=== PATIENT | female | born 1995 | race African-American/Black ===

== ENCOUNTER 2016-12-17 11:30 | Emergency (ER) | payer SELFPAY ==
[~2016-12-17] VITALS: Ht 167.6 cm; Wt 55.0 kg
[~2016-12-17 11:30] MED LIST: METR-1 PO
[2016-12-17 11:31] VITALS: BP 129/58; PULSE 83; RESP 18; TEMP 98.2; O2SAT 100
== END 2016-12-17 12:00 | disposition left against medical advice (07) ==
LOC: NED 11:30
DX: M54.9 Dorsalgia, unspecified (principal); R10.9 Unspecified abdominal pain
CPT/HCPCS: 99281

== ENCOUNTER 2017-02-17 17:37 | Emergency (ER) | payer SELFPAY ==
[~2017-02-17] VITALS: Ht 167.6 cm; Wt 57.0 kg
[2017-02-17 17:40] VITALS: BP 119/58; PULSE 84; RESP 16; TEMP 98.2; O2SAT 99
[2017-02-17 18:24] LABS: BLOOD, URINE NEG (NEG); COMMENT (UR) CULT NOT INDICATED; CULTURE IF INDICATED CULT NOT INDICATED; GLUCOSE,URINE NEG (NEG); KETONE, URINE NEG (NEG); MUCUS URINE FEW /lpf (OCC); NITRITE,URINE NEG (NEG); SQUAMOUS EPITHELIAL CELL URINE 2 /hpf (0-5); URINE COLOR YELLOW (YELLW/STRAW)
[2017-02-17 18:25] LABS: AUTOMATED NEUTROPHIL # 4.5 TH/MM3 (1.8-7.7); BASOPHIL % 0.5 % (0.0-2.0); EOSINOPHIL % 0.4 % (0.0-4.0); HEMATOCRIT 40.5 % (35.0-46.0); HEMO FLAGS DIFF FINAL; LYMPHOCYTE # 1.8 TH/MM3 (1.0-4.8); MEAN CELL VOLUME 87.2 FL (80.0-100.0); MEAN CORPUSCULAR HEMOGLOBIN 27.3 PG (27.0-34.0); MEAN CORPUSCULAR HGB CONC 31.3 % (32.0-36.0); MONO % 9.6 % (0.0-8.0); NEUT % 63.5 % (16.0-70.0); PLATELET COUNT 145 TH/MM3 (150-450); RED BLOOD COUNT 4.65 MIL/MM3 (4.00-5.30); RED CELL DISTRIBUTION WIDTH 13.4 % (11.6-17.2); WHITE BLOOD COUNT 7.1 TH/MM3 (4.0-11.0)
[2017-02-17 18:43] LABS: BICARBONATE 25.3 MEQ/L (21.0-32.0); POTASSIUM 3.5 MEQ/L (3.5-5.1)
--- NOTE | 2017-02-17 19:08 | PD ---
HPI . Abdominal pain and constipation Chief Complaint: Abdominal Pain Time Seen by Provider: 18:23 Travel History International Travel<30 days: No Contact w/Intl Traveler<30days: No Traveled to known affect area: No History of Present Illness HPI Patient presents with at least a 2 week history of abdominal pain and constipation. She states that she is eating well. She is not running fever. She denies any urinary tract symptoms. She is not vomiting. States that she has been seen here before for this and was given a bottle of magnesium citrate with no relief. That was in August. Pain is mild and is described as cramping. PFSH Past Medical History ADHD: Yes Blood Disorders: No Diminished Hearing: No Immunizations Current: Yes ?: Not : 0 Social History Alcohol Use: No Tobacco Use: No Substance Use: No Allergies-Medications (Allergen,Severity, Reaction): Coded Allergies: Mushroom (Verified Allergy, Severe, fingers and face swelled up. Had some wheezing., 02/17/17) Took allergy medicine and used ice bags on face. Smoke (Verified Allergy, Unknown, can't breath, eyes get watery and has a cough, 02/17/17) Reported Meds & Prescriptions Reported Meds & Active Scripts Active Flagyl (Metronidazole) 500 Mg Tab 500 Mg PO BID Review of Systems Except as stated in HPI: all other systems reviewed are Neg General / Constitutional: No: Fever, Chills Gastrointestinal: Positive: Abdominal Pain, Constipation, No: Nausea, Vomiting , Diarrhea, Loss of Appetite Genitourinary: No: Urgency, Frequency, Dysuria, Discharge, Vaginal Bleeding Physical Exam Narrative GENERAL: Patient is smiling and is in no distress. SKIN: Warm and dry. HEAD: Atraumatic. Normocephalic. EYES: Pupils equal and round. Extraocular movements are intact. ENT: No nasal bleeding or discharge. Mucous membranes pink and moist. NECK: Trachea midline. Neck is supple. CARDIOVASCULAR: Regular rate and rhythm. Heart sounds are normal. RESPIRATORY: No accessory muscle use. Lungs are clear. GASTROINTESTINAL: Abdomen soft, non-tender, nondistended. MUSCULOSKELETAL: No obvious deformities. No edema. NEUROLOGICAL: Awake and alert. No obvious cranial nerve deficits. Motor grossly within normal limits. Normal speech. PSYCHIATRIC: Appropriate mood and affect; insight and judgment normal. Data Data Last Documented VS Vital Signs Date Time Temp Pulse Resp B/P Pulse Ox O2 Delivery O2 Flow Rate FiO2 02/17/17 17:40 98.2 84 16 119/58 99 Orders Basic Metabolic Panel (Bmp) (02/17/17 17:53) Complete Blood Count With Diff (02/17/17 17:53) Urinalysis - C+S If Indicated (02/17/17 17:53) Iv Access Insert/Monitor (02/17/17 17:53) Ecg Monitoring (02/17/17 17:53) Oximetry (02/17/17 17:53) Ed Urine Pregnancytest Poc (02/17/17 17:53) Labs Laboratory Tests Test 02/17/17 02/17/17 18:01 18:03 White Blood Count 7.1 TH/MM3 Red Blood Count 4.65 MIL/MM3 Hemoglobin 12.7 GM/DL Hematocrit 40.5 % Mean Corpuscular Volume 87.2 FL Mean Corpuscular Hemoglobin 27.3 PG Mean Corpuscular Hemoglobin 31.3 % Concent Red Cell Distribution Width 13.4 % Platelet Count 145 TH/MM3 Mean Platelet Volume 10.3 FL Neutrophils (%) (Auto) 63.5 % Lymphocytes (%) (Auto) 26.0 % Monocytes (%) (Auto) 9.6 % Eosinophils (%) (Auto) 0.4 % Basophils (%) (Auto) 0.5 % Neutrophils # (Auto) 4.5 TH/MM3 Lymphocytes # (Auto) 1.8 TH/MM3 Monocytes # (Auto) 0.7 TH/MM3 Eosinophils # (Auto) 0.0 TH/MM3 Basophils # (Auto) 0.0 TH/MM3 CBC Comment DIFF FINAL Differential Comment Sodium Level 139 MEQ/L Potassium Level 3.5 MEQ/L Chloride Level 105 MEQ/L Carbon Dioxide Level 25.3 MEQ/L Anion Gap 9 MEQ/L Blood Urea Nitrogen 11 MG/DL Creatinine 0.76 MG/DL Estimat Glomerular Filtration 115 ML/MIN Rate Random Glucose 67 MG/DL Calcium Level 8.8 MG/DL Urine Color YELLOW Urine Turbidity CLEAR Urine pH 5.0 Urine Specific [place] 1.029 Urine Protein TRACE mg/dL Urine Glucose (UA) NEG mg/dL Urine Ketones NEG mg/dL Urine Occult Blood NEG Urine Nitrite NEG Urine Bilirubin NEG Urine Urobilinogen LESS THAN 2.0 MG/DL Urine Leukocyte Esterase NEG Urine RBC LESS THAN 1 /hpf Urine Squamous Epithelial 2 /hpf Cells Urine Mucus FEW /lpf Microscopic Urinalysis Comment CULT NOT INDICATED MDM Medical Decision Making Medical Screen Exam Complete: Yes Emergency Medical Condition: Yes Differential Diagnosis Differential diagnosis of abdominal pain includes but is not limited to gastritis, pancreatitis, hepatitis, gastroenteritis, gallbladder disease, constipation, urinary retention, UTI, peptic ulcer disease, diverticulitis or appendicitis Narrative Course Patient presents with abdominal pain and constipation present for at least couple weeks. She has a benign exam. CBC & BMP Diagram 02/17/17 18:01 test is negative. UA is negative. Diagnosis Primary Impression: Constipation Qualified Code: K59.00 - Constipation, unspecified constipation type Patient Instructions: Constipation (DC), General Instructions Additional Instructions: Take a dose of milk of magnesia every night before bed until you are passing your bowels without difficulty. Disposition: 01 DISCHARGE HOME Condition: Stable Ivette Butt MD February 17, 2017 19:08
== END 2017-02-17 19:23 | disposition home or self-care (01) ==
LOC: NEPD 17:37
DX: K59.00 Constipation, unspecified (principal)
CPT/HCPCS: 80048; 81001; 84703; 85025; 99283

== ENCOUNTER 2017-06-29 21:50 | Emergency (ER) | payer SELFPAY ==
[~2017-06-29] VITALS: Ht 167.6 cm; Wt 60.0 kg
[2017-06-29 21:53] VITALS: BP 150/63; PULSE 86; RESP 16; TEMP 98.2; O2SAT 99
[2017-06-29] MEDS ORDERED: IPRA0.06 EACH NARE (22:51)
[2017-06-29] MEDS ORDERED: IBUP800T23 PO (22:51)
[2017-06-29] MEDS ORDERED: AZIT250T3 PO (22:51)
--- NOTE | 2017-06-29 22:51 | PD ---
HPI Chief Complaint: Cold / Flu Symptoms Time Seen by Provider: 22:36 Travel History International Travel<30 days: No Contact w/Intl Traveler<30days: No Traveled to known affect area: No History of Present Illness HPI Patient is a 21 year old female presenting with 3 hours of sore throat, congestion, ear pressure, nausea. Pt states it hurts to swallow. She denies any vomiting, SOB, chest pain, abdominal pain. Pt has not taken anything to alleviate pain. She denies any medical history. [facility]LY [facility] Past Medical History ADHD: Yes Blood Disorders: No Diabetes: No Patient Takes Glucophage: No Diminished Hearing: No Immunizations Current: Yes Tetanus Vaccination: > 5 Years Influenza Vaccination: Yes ?: Not LMP: 06/23/17 : 0 Past Surgical History Surgical History: No Previous Surgery Social History Alcohol Use: No Tobacco Use: No Substance Use: No Allergies-Medications (Allergen,Severity, Reaction): Coded Allergies: mushroom (Unverified Allergy, Severe, fingers and face swelled up. Had some wheezing., 06/29/17) Took allergy medicine and used ice bags on face. Smoke (Verified Allergy, Unknown, can't breath, eyes get watery and has a cough, 06/29/17) Reported Meds & Prescriptions Reported Meds & Active Scripts Active No Active Prescriptions or Reported Medications Review of Systems Except as stated in HPI: all other systems reviewed are Neg General / Constitutional: No: Fever, Chills HENT: Positive: Sore Throat, Congestion, Earache Cardiovascular: No: Chest Pain or Discomfort Respiratory: No: Cough, Shortness of Breath, Pleuritic Pain Gastrointestinal: Positive: Nausea, No: Vomiting, Diarrhea, Abdominal Pain Genitourinary: No: Dysuria Musculoskeletal: No: Myalgias Neurologic: No: Dizziness Physical Exam Narrative GENERAL: Well-developed, well-nourished, alert female. Resting comfortably in no acute distress. SKIN: Warm and dry. HEAD: Atraumatic. Normocephalic. EYES: Pupils equal and round. No scleral icterus. No injection or drainage. ENT: No nasal bleeding or discharge. Mucous membranes pink and moist. Airway is patent, no tonsillar hypertrophy noted, no exudates noted. EARS: Bilateral pinnae and external canals appear within normal limits. Bilateral tympanic membranes without erythema, dullness or perforation. NECK: Trachea midline. No JVD. CARDIOVASCULAR: Regular rate and rhythm. RESPIRATORY: No accessory muscle use. Clear to auscultation. Breath sounds equal bilaterally. GASTROINTESTINAL: Abdomen soft, non-tender, nondistended. Hepatic and splenic margins not palpable. MUSCULOSKELETAL: Extremities without clubbing, cyanosis, or edema. No obvious deformities. NEUROLOGICAL: Awake and alert. No obvious cranial nerve deficits. Motor grossly within normal limits. Five out of 5 muscle strength in the arms and legs. Normal speech. PSYCHIATRIC: Appropriate mood and affect; insight and judgment normal. Data Data Last Documented VS Vital Signs Date Time Temp Pulse Resp B/P (MAP) Pulse Ox O2 Delivery O2 Flow Rate FiO2 06/29/17 21:53 98.2 86 16 150/63 (92) 99 Room Air MDM Medical Decision Making Medical Screen Exam Complete: Yes Emergency Medical Condition: Yes Interpretation(s) Vital Signs Date Time Temp Pulse Resp B/P (MAP) Pulse Ox O2 Delivery O2 Flow Rate FiO2 06/29/17 21:53 98.2 86 16 150/63 (92) 99 Room Air Differential Diagnosis Viral URI versus pharyngitis versus influenza versus other Narrative Course Patient presented with 3 hours of sore throat, chest congestion, ear pressure and nausea. Physical examination is unremarkable. Patient's vital signs are stable. Patient is afebrile and her airway is patent. At this point patient was advised to trial conservative management. She was encouraged to take medications as needed and as directed. She was encouraged to follow-up with her primary doctor. She was advised that if she began to take the antibiotic she needed to complete the full course however at this time she was advised that it will not benefit her to take an antibiotic for viral illness. She does report that her friend has been ill. She was encouraged to return to emergency department for any new or worsening symptoms. Patient verbalized understanding of instructions. Patient stable for discharge. Diagnosis Primary Impression: Viral URI Referrals: Primary Care Physician 1 week Patient Instructions: General Instructions, Upper Respiratory Infection (ED) Additional Instructions: Follow-up with your primary doctor Continue symptom management Obtain [id number] Sudafed or similar medication and use as needed and as directed for nasal congestion Maintain adequate fluid intake If you begin antibiotic complete full course of therapy Return to emergency department for any new or worsening symptoms Med/Other Pt SpecificInfo: Prescription(s) given Scripts Azithromycin (Azithromycin) 250 Mg Tab 250 MG PO DIRECTED for Infection, #6 TAB 0 Refills Take 2 tabs (500 mg) on day 1 then 1 tab daily x 4 days. Prov: Kinsey Ro 06/29/17 Ipratropium Nasal (Ipratropium Nasal) 0.06% [place] 1 SPRAY EACH NARE TID, #1 BOTTLE 0 Refills Prov: Kinsey Ro 06/29/17 Ibuprofen (Ibuprofen) 800 Mg Tab 800 MG PO Q6HR Y for PAIN, #40 TAB 0 Refills Prov: Kinsey Ro 06/29/17 Disposition: 01 DISCHARGE HOME Condition: Stable Kinsey Ro Jun 29, 2017 22:51
== END 2017-06-29 23:10 | disposition home or self-care (01) ==
LOC: NEPD 21:50
DX: J02.9 Acute pharyngitis, unspecified (principal)
CPT/HCPCS: 99284

== ENCOUNTER 2017-08-01 12:25 | Emergency (ER) | payer SELFPAY ==
[~2017-08-01] VITALS: Ht 167.6 cm; Wt 57.5 kg
[~2017-08-01 12:25] MED LIST changes: +AZIT250T3 PO; +IBUP1TAB7 PO; +IPRA0.06 EACH NARE; -METR-1 PO
[2017-08-01 12:27] VITALS: BP 109/69; PULSE 78; RESP 12; TEMP 98; O2SAT 98
--- NOTE | 2017-08-01 13:21 | PD ---
HPI Chief Complaint: Abdominal Pain Time Seen by Provider: 12:55 Travel History International Travel<30 days: No Contact w/Intl Traveler<30days: No Traveled to known affect area: No History of Present Illness HPI 21-year-old female presents to the emergency room for evaluation of lower abdominal pain for the past 2 weeks. Pain is localized to the pelvic region with occasional radiation to her belly button. Denies any worsening of symptoms over the past 2 weeks. She has not taken anything. She feels pressure during urination. Denies dysuria reports urgency and frequency. She said associated nausea without vomiting. Patient denies any foul-smelling or abnormal vaginal discharge. Denies diarrhea, fever, chills, or night sweats. No chronic medical conditions or daily medications. She is having protected sex with condoms. Patient has had urinary tract infections in the past and states this is similar. PFSH Past Medical History ADHD: Yes Blood Disorders: No Diabetes: No Diminished Hearing: No Immunizations Current: Yes Tetanus Vaccination: > 5 Years Influenza Vaccination: No ?: Not LMP: 07/16/17 : 0 Para: 0 Miscarriage: 0 : 0 Past Surgical History Surgical History: No Previous Surgery Social History Alcohol Use: No Tobacco Use: No Substance Use: No Allergies-Medications (Allergen,Severity, Reaction): Coded Allergies: mushroom (Unverified Allergy, Severe, fingers and face swelled up. Had some wheezing., 08/01/17) Took allergy medicine and used ice bags on face. latex (Verified Allergy, Intermediate, Hives, 08/01/17) Smoke (Verified Allergy, Unknown, can't breath, eyes get watery and has a cough, 08/01/17) Reported Meds & Prescriptions Reported Meds & Active Scripts Active No Active Prescriptions or Reported Medications Review of Systems Except as stated in HPI: all other systems reviewed are Neg Physical Exam Narrative GENERAL: Well-nourished, well-developed female in no acute distress. Afebrile. Ambulatory. Moving easily on bed. SKIN: Focused skin assessment warm/dry. HEAD: Normocephalic. EYES: No scleral icterus. No injection or drainage. NECK: Supple, trachea midline. No JVD or lymphadenopathy. CARDIOVASCULAR: Regular rate and rhythm without murmurs, gallops, or rubs. RESPIRATORY: Breath sounds equal bilaterally. No accessory muscle use. GASTROINTESTINAL: Abdomen soft, nondistended. No CVA tenderness. Very little tenderness to palpation of the left lower quadrant. No RLQ tenderness. No rebound tenderness. No guarding. No peritoneal signs. Data Data Last Documented VS Vital Signs Date Time Temp Pulse Resp B/P (MAP) Pulse Ox O2 Delivery O2 Flow Rate FiO2 08/01/17 12:27 98.0 78 12 109/69 (82) 98 Orders Orders Ed Urine Pregnancytest Poc (08/01/17 13:03) Urinalysis - C+S If Indicated (08/01/17 13:12) Gc And Chlamydia Pcr (08/01/17 14:41) Azithromycin Powd Pack (Zithromax Powd P (08/01/17 14:45) Ceftriaxone Inj (Rocephin Inj) (08/01/17 14:45) Lidocaine 1% Inj (50 Ml) (Xylocaine 1% I (08/01/17 14:45) Ed Discharge Order (08/01/17 14:45) Labs Laboratory Tests Test 08/01/17 13:15 Urine Color YELLOW Urine Turbidity CLEAR Urine pH 6.0 Urine Specific [place] 1.026 Urine Protein NEG mg/dL Urine Glucose (UA) NEG mg/dL Urine Ketones NEG mg/dL Urine Occult Blood NEG Urine Nitrite NEG Urine Bilirubin NEG Urine Urobilinogen LESS THAN 2.0 MG/DL Urine Leukocyte Esterase NEG Urine RBC 1 /hpf Urine WBC 1 /hpf Urine Squamous Epithelial Cells 4 /hpf Urine Mucus FEW /lpf Microscopic Urinalysis Comment CULT NOT INDICATED MDM Medical Decision Making Medical Screen Exam Complete: Yes Emergency Medical Condition: Yes Medical Record Reviewed: Yes Differential Diagnosis UTI, STD, PID, vaginitis, appendicitis unlikely Narrative Course 21-year-old healthy female presents to the emergency room for evaluation of pelvic tenderness and pressure during urination for the past 2 weeks. Pain has not been significantly increasing. She denies fever, chills, diarrhea, vomiting , or any vaginal discharge or foul smelling odor. She has had mild nausea. States it feels like urinary tract infection. Denies concern for STD or . Physical exam unremarkable. Vital signs stable. Very mild tenderness to palpation of the left lower quadrant. No tenderness to palpation of the right lower quadrant. No peritoneal signs, guarding, or rebound tenderness. No CVA tenderness. No indication for imaging at this time. Patient's exam is benign. ED test is negative. UA shows no evidence of acute infection. GC and chlamydia ordered and pending. Patient treated empirically with azithromycin and ceftriaxone. According EMR, patient has been seen in the emergency room multiple times for vague abdominal pain, UTI symptoms , STDs, vaginitis, and PID. She likely has chronic pelvic pain. Patient is stable for outpatient follow-up. Told to return for worsening symptoms. She understands and agrees to plan. Diagnosis Primary Impression: Dysuria Referrals: Primary Care Physician Additional Instructions: Rest and drink plenty of fluids. Take ibuprofen with food as directed, as needed for pain. Follow-up with a primary care physician. Return to the emergency room for worsening symptoms. Med/Other Pt SpecificInfo: Prescription(s) given Scripts No Active Prescriptions or Reported Meds Disposition: 01 DISCHARGE HOME Condition: Stable Lacy Mcgraw Aug 01, 2017 13:21
[2017-08-01 14:06] LABS: BLOOD, URINE NEG (NEG); COMMENT (UR) CULT NOT INDICATED; CULTURE IF INDICATED CULT NOT INDICATED; GLUCOSE,URINE NEG (NEG); KETONE, URINE NEG (NEG); MUCUS URINE FEW /lpf (OCC); NITRITE,URINE NEG (NEG); SQUAMOUS EPITHELIAL CELL URINE 4 /hpf (0-5); URINE COLOR YELLOW (YELLW/STRAW)
[2017-08-01] MEDS ORDERED: LIDOCAINE HCL 1% 50 ML VIAL IM ONE (14:45)
[2017-08-01] MEDS ORDERED: cefTRIAXone 250 MG VIAL IM ONE (14:45)
[2017-08-01] MEDS ORDERED: AZITHROMYCIN PWD FOR SUSP 1 GM PACKET PO ONE (14:45)
[2017-08-01 20:19] LABS: CHLAMYDIA PCR NOT DETECTED (NOT DETECT); NEISSERIA PCR NOT DETECTED (NOT DETECT)
== END 2017-08-01 15:53 | disposition home or self-care (01) ==
LOC: NEPD 12:25
DX: R30.0 Dysuria (principal); F90.9 Attention-deficit hyperactivity disorder, unspecified type
CPT/HCPCS: 81001; 84703; 87491; 87591; 96372; 99284; J0696

== ENCOUNTER 2017-10-21 15:45 | Emergency (ER) | payer SELFPAY ==
[~2017-10-21] VITALS: Ht 167.6 cm; Wt 58.2 kg
[2017-10-21 15:48] VITALS: BP 117/58; PULSE 101; RESP 14; TEMP 99.1; O2SAT 100
--- NOTE | 2017-10-21 17:11 | PD ---
HPI Chief Complaint: Abdominal Pain Time Seen by Provider: 17:09 Travel History International Travel<30 days: No Contact w/Intl Traveler<30days: No Traveled to known affect area: No History of Present Illness HPI 22-year-old female presents to the emergency department with 2 complaints. The first complaint of intermittent lower abdominal pain 1 month that she has been evaluated here for before. Reporting difficulty with bowel movements 1 month. Her last bowel movement was this morning and was normal. Denies dysuria. Reports foul-smelling vaginal discharge that has also been intermittent times one month. Describes abdominal pain as a cramping, aching. Reports nausea without vomiting. Unknown exposure to STD. That she was treated for chlamydia and gonorrhea the last time she was seen here. Last menstrual period October 08. Rates pain 05/08. Has not taken any medications or tried any treatment to alleviate her symptoms. No known aggravating or relieving factors. She is also complaining of scratchy throat 2 days. Denies fever, nasal congestion, cough, headaches. No known aggravating or relieving factors. Denies throat pain. Has not taken any medication or drainage from his to alleviate her symptoms. Allergies to mushrooms. No primary care provider. Denies significant past medical history. Has no other medical complaints. No other modifying factors or associated signs and symptoms. PFSH Past Medical History ADHD: Yes Blood Disorders: No Diabetes: No Diminished Hearing: No Immunizations Current: Yes ?: Unknown LMP: 10/08/2017 : 0 Para: 0 Miscarriage: 0 : 0 Social History Alcohol Use: No Tobacco Use: No Substance Use: No Allergies-Medications (Allergen,Severity, Reaction): Coded Allergies: mushroom (Unverified Allergy, Severe, fingers and face swelled up. Had some wheezing., 08/01/17) Took allergy medicine and used ice bags on face. latex (Verified Allergy, Intermediate, Hives, 08/01/17) Smoke (Verified Allergy, Unknown, can't breath, eyes get watery and has a cough, 08/01/17) Reported Meds & Prescriptions Reported Meds & Active Scripts Active Flagyl (Metronidazole) 500 Mg Tab 500 Mg PO BID 7 Days Review of Systems Except as stated in HPI: all other systems reviewed are Neg Physical Exam Narrative GENERAL: Well-nourished, well-developed black female patient, in no acute distress; afebrile, nontoxic-appearing SKIN: Warm and dry. HEAD: Atraumatic. Normocephalic. EYES: Pupils equal and round. No scleral icterus. No injection or drainage. ENT: Mucosa pink and moist. No erythema or exudates. No uvular edema. No uvular , palatal, or tonsillar deviation. Airway patent. Nasal turbinates appear normal without nasal blood, purulent drainage or septal hematoma. EARS: Bilateral pinnae and external canals appear within normal limits. Bilateral tympanic membranes without erythema, dullness or perforation. NECK: Trachea midline. No lymphadenopathy. CARDIOVASCULAR: Regular rate and rhythm. No murmur appreciated. RESPIRATORY: No accessory muscle use. Clear to auscultation. Breath sounds equal bilaterally. GASTROINTESTINAL: Abdomen soft, non-tender, nondistended. Bladder tenderness on palpation. Bladder nondistended. Bilateral pelvic region nontender to palpation. Hepatic and splenic margins not palpable. No guarding, rigidity, rebound tenderness. PELVIC: Exam done in the presence of a nurse. Speculum exam reveals nonedematous and nonerythematous cervix with minimal amount of white foul- smelling vaginal discharge. Positive whiff test. Bimanual exam reveals no palpable masses or adnexa tenderness, no uterine tenderness. No cervical motion tenderness. BACK: No CVA tenderness. MUSCULOSKELETAL: No obvious deformities. No clubbing. No cyanosis. No edema. NEUROLOGICAL: Awake and alert. No obvious cranial nerve deficits. Motor grossly within normal limits. Normal speech. PSYCHIATRIC: Appropriate mood and affect; insight and judgment normal. Data Data Last Documented VS Vital Signs Date Time Temp Pulse Resp B/P (MAP) Pulse Ox O2 Delivery O2 Flow Rate FiO2 10/21/17 18:03 10/21/17 15:48 99.1 101 14 100 Room Air Orders Orders Complete Blood Count With Diff (10/21/17 16:01) Comprehensive Metabolic Panel (10/21/17 16:01) Lipase (10/21/17 16:01) Urinalysis - C+S If Indicated (10/21/17 16:01) Ed Urine Pregnancytest Poc (10/21/17 16:01) Gc And Chlamydia Pcr (10/21/17 17:22) Wet Prep Profile (10/21/17 17:22) Ketorolac Inj (Toradol Inj) (1/23/18 17:45) Ed Discharge Order (10/21/17 18:00) Labs Laboratory Tests Test 10/21/17 16:45 10/21/17 16:46 10/21/17 17:28 Urine Color YELLOW Urine Turbidity CLEAR Urine pH 6.5 Urine Specific [place] 1.015 Urine Protein NEG mg/dL Urine Glucose (UA) NEG mg/dL Urine Ketones NEG mg/dL Urine Occult Blood NEG Urine Nitrite NEG Urine Bilirubin NEG Urine Urobilinogen LESS THAN 2.0 MG/DL Urine Leukocyte Esterase NEG Urine RBC LESS THAN 1 /hpf Urine WBC 1 /hpf Urine Squamous Epithelial Cells 4 /hpf Urine Bacteria RARE /hpf Urine Mucus FEW /lpf Microscopic Urinalysis Comment CULT NOT INDICATED White Blood Count 6.2 TH/MM3 Red Blood Count 4.73 MIL/MM3 Hemoglobin 13.1 GM/DL Hematocrit 42.1 % Mean Corpuscular Volume 88.9 FL Mean Corpuscular Hemoglobin 27.7 PG Mean Corpuscular Hemoglobin Concent 31.2 % Red Cell Distribution Width 13.0 % Platelet Count 180 TH/MM3 Mean Platelet Volume 9.9 FL Neutrophils (%) (Auto) 75.4 % Lymphocytes (%) (Auto) 13.9 % Monocytes (%) (Auto) 10.1 % Eosinophils (%) (Auto) 0.3 % Basophils (%) (Auto) 0.3 % Neutrophils # (Auto) 4.7 TH/MM3 Lymphocytes # (Auto) 0.9 TH/MM3 Monocytes # (Auto) 0.6 TH/MM3 Eosinophils # (Auto) 0.0 TH/MM3 Basophils # (Auto) 0.0 TH/MM3 CBC Comment DIFF FINAL Differential Comment Blood Urea Nitrogen 10 MG/DL Creatinine 0.78 MG/DL Random Glucose 66 MG/DL Total Protein 8.7 GM/DL Albumin 4.4 GM/DL Calcium Level 9.8 MG/DL Alkaline Phosphatase 56 U/L Aspartate Amino Transf (AST/SGOT) 17 U/L Alanine Aminotransferase (ALT/SGPT) 17 U/L Total Bilirubin 0.8 MG/DL Sodium Level 139 MEQ/L Potassium Level 4.0 MEQ/L Chloride Level 103 MEQ/L Carbon Dioxide Level 29.6 MEQ/L Anion Gap 6 MEQ/L Estimat Glomerular Filtration Rate 111 ML/MIN Lipase 185 U/L Clue Cells (Wet Prep) PRESENT Vaginal Trichomonas (Wet Prep) NONE SEEN Vaginal Yeast (Wet Prep) NONE SEEN MDM Medical Decision Making Medical Screen Exam Complete: Yes Emergency Medical Condition: Yes Medical Record Reviewed: Yes Differential Diagnosis Bacterial vaginosis, chlamydia, gonorrhea, cervicitis, UTI, PID Narrative Course 22-year-old female with lower abdominal pain and vaginal symptoms 1 month. She was seen here on August 01 and treated empirically for chlamydia and gonorrhea, which resulted negative. Patient has no reproducible tenderness on palpation of the abdomen. Her tenderness is trebly over the bladder and the bladder is nondistended. CBC, CMP, lipase, urinalysis, UPT ordered in triage. Chlamydia, gonorrhea, wet prep ordered. 1730: UPT negative. CBC unremarkable. I do not suspect cervicitis and the patient will not be treated empirically. 1820: CMP and lipase unremarkable. Urinalysis unremarkable. Trichomonas and vaginal yeast and negative. Bacterial vaginosis positive. Chlamydia and gonorrhea pending. Flagyl prescribed for home. Instructed patient to follow up with primary care provider. Patient verbalizes understanding and agreement with treatment plan. Patient is medically cleared and stable for discharge. Discussed reasons to return to the emergency department. Patient agrees with treatment plan. The patients vital signs are stable and the patient is stable for outpatient follow-up and treatment. Patient discharged home, stable and in no acute distress. Diagnosis Primary Impression: Bacterial vaginosis Additional Impression: Throat irritation Referrals: Baggage Security Checker Primary Care Physician Patient Instructions: Bacterial Vaginosis (ED), General Instructions Departure Forms: Tests/Procedures, Work Release Enter return to work date: Oct 22, 2017 Additional Instructions: Take antibiotics as prescribed and complete full course Maintain good personal hygiene Avoid wearing tight pants Wear cotton underwear only Follow-up with primary care provider Return to the emergency department immediately with worsening of symptoms Med/Other Pt SpecificInfo: Prescription(s) given Scripts Metronidazole (Flagyl) 500 Mg Tab 500 MG PO BID for Infection for 7 Days, #14 TAB 0 Refills Prov: Jocelin Conner 10/21/17 Disposition: 01 DISCHARGE HOME Condition: Stable Jocelin Conner Oct 21, 2017 17:11
[2017-10-21 17:12] LABS: AUTOMATED NEUTROPHIL # 4.7 TH/MM3 (1.8-7.7); BASOPHIL % 0.3 % (0.0-2.0); EOSINOPHIL % 0.3 % (0.0-4.0); HEMATOCRIT 42.1 % (35.0-46.0); HEMOGLOBIN 13.1 GM/DL (11.6-15.3); LYMPH % 13.9 % (9.0-44.0); LYMPHOCYTE # 0.9 TH/MM3 (1.0-4.8); MEAN CELL VOLUME 88.9 FL (80.0-100.0); MEAN CORPUSCULAR HEMOGLOBIN 27.7 PG (27.0-34.0); MEAN CORPUSCULAR HGB CONC 31.2 % (32.0-36.0); MEAN PLATELET VOLUME 9.9 FL (7.0-11.0); MONO % 10.1 % (0.0-8.0); MONOCYTE # 0.6 TH/MM3 (0-0.9); NEUT % 75.4 % (16.0-70.0); PLATELET COUNT 180 TH/MM3 (150-450); RED BLOOD COUNT 4.73 MIL/MM3 (4.00-5.30); WHITE BLOOD COUNT 6.2 TH/MM3 (4.0-11.0)
[2017-10-21 17:32] LABS: BACTERIA, URINE RARE /hpf; BILIRUBIN, URINE NEG (NEG); BLOOD, URINE NEG (NEG); GLUCOSE,URINE NEG (NEG); KETONE, URINE NEG (NEG); MUCUS URINE FEW /lpf (OCC); NITRITE,URINE NEG (NEG); PH, URINE 6.5 (5.0-8.5); SQUAMOUS EPITHELIAL CELL URINE 4 /hpf (0-5); URINE COLOR YELLOW (YELLW/STRAW); URINE LEUKOCYTE ESTERASE NEG (NEG)
[2017-10-21 17:36] LABS: ALBUMIN 4.4 GM/DL (3.4-5.0); AST (GOT) 17 U/L (15-37); BICARBONATE 29.6 MEQ/L (21.0-32.0); BLOOD UREA NITROGEN 10 MG/DL (7-18); CALCIUM 9.8 MG/DL (8.5-10.1); CHLORIDE 103 MEQ/L (98-107); CREATININE 0.78 MG/DL (0.50-1.00); GLOMERULAR FILTRATION RATE 111 ML/MIN (>89); GLUCOSE,RANDOM 66 MG/DL (74-106); LIPASE 185 U/L (73-393); SODIUM (NA) 139 MEQ/L (136-145)
[2017-10-21 17:37] LABS: ALT (GPT) 17 U/L (10-53)
[2017-10-21 17:39] LABS: ALKALINE PHOSPHATASE 56 U/L (45-117); TOTAL BILIRUBIN ADULT 0.8 MG/DL (0.2-1.0); TOTAL PROTEIN 8.7 GM/DL (6.4-8.2)
[2017-10-21] MEDS ORDERED: KETOROLAC TROMETHAMINE 60 MG/2 ML (IM) VIAL IM ONE (17:45)
[2017-10-21] MEDS ORDERED: METR-1 PO (17:58)
== END 2017-10-21 18:10 | disposition home or self-care (01) ==
LOC: NEPD 15:45
DX: N76.0 Acute vaginitis (principal); R09.89 Other specified symptoms and signs involving the circulatory and respiratory systems; F90.9 Attention-deficit hyperactivity disorder, unspecified type
CPT/HCPCS: 80053; 81001; 83690; 84703; 85025; 87210; 87491; 87591; 96372; 99284; J1885

== ENCOUNTER 2017-12-30 12:32 | Emergency (ER) | payer SELFPAY ==
[~2017-12-30] VITALS: Ht 167.6 cm; Wt 55.9 kg
[~2017-12-30 12:32] MED LIST changes: -AZIT250T3 PO; -IBUP1TAB7 PO; -IPRA0.06 EACH NARE; +METR-1 PO
[2017-12-30 12:41] VITALS: BP 108/64; PULSE 92; RESP 18; TEMP 98.1; O2SAT 100
[2017-12-30 14:28] VITALS: BP 112/63; PULSE 81; RESP 15; O2SAT 100
--- NOTE | 2017-12-30 14:36 | PD ---
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 Patient suspects yeast infection versus STD. Patient does report having sex with her "no good boyfriend" prior to symptoms starting. Patient denies fever or flank pain. Patient states she did not have a period last month. Patient also reports constipation for the past 2 months. She states she does move her bowels but is very hard and small pellets. She has been trying to drink more water for this. She denies other nausea, vomiting, or significant abdominal pain. She is allergic to smoke, latex, and mushroom. PFSH Past Medical History ADHD: Yes Blood Disorders: No Diabetes: No Diminished Hearing: No Immunizations Current: Yes Tetanus Vaccination: Unknown Influenza Vaccination: No ?: Unknown : 0 Para: 0 Miscarriage: 0 : 0 Past Surgical History Surgical History: No Previous Surgery Social History Alcohol Use: No Tobacco Use: No Substance Use: No Allergies-Medications (Allergen,Severity, Reaction): Coded Allergies: mushroom (Unverified Allergy, Severe, fingers and face swelled up. Had some wheezing., 12/30/17) Took allergy medicine and used ice bags on face. latex (Verified Allergy, Intermediate, Hives, 12/30/17) Smoke (Verified Allergy, Unknown, can't breath, eyes get watery and has a cough, 12/30/17) Reported Meds & Prescriptions Reported Meds & Active Scripts Active No Active Prescriptions or Reported Medications Review of Systems Except as stated in HPI: all other systems reviewed are Neg General / Constitutional: No: Fever, Chills Eyes: No: Visual changes HENT: No: Headaches Cardiovascular: No: Chest Pain or Discomfort Respiratory: No: Cough, Shortness of Breath, Wheezing Gastrointestinal: Positive: Constipation, No: Nausea, Vomiting, Diarrhea, Abdominal Pain, Hematemesis, Hematochezia, Indigestion, Dysphagia, Loss of Appetite Genitourinary: Positive: Urgency, Frequency, Dysuria, Pelvic Pain, Discharge, No: Nocturia, Hematuria, Decreased Urinary Output, Hesitancy, Dribbling, Incontinence, Flank Pain, Vaginal Bleeding Musculoskeletal: No: Pain Skin: No Rash Neurologic: No: Weakness Psychiatric: No: Depression Endocrine: No: Polydipsia Hematologic/Lymphatic: No: Easy Bruising Physical Exam Narrative GENERAL: Patient appears in no acute distress per SKIN: Warm and dry. Normal color. Normal turgor HEAD: Atraumatic. Normocephalic. EYES: Pupils equal and round. No scleral icterus. No injection or drainage. ENT: No nasal bleeding or discharge. Mucous membranes pink and moist. NECK: Trachea midline. Supple and nontender CARDIOVASCULAR: Regular rate and rhythm. RESPIRATORY: No accessory muscle use. Clear to auscultation. Breath sounds equal bilaterally. GASTROINTESTINAL: Abdomen soft, non-tender, nondistended. Hepatic and splenic margins not palpable. PELVIC: Exam performed with nursing staff as clinical lab specialist, shows external genitalia unremarkable, there is obvious white vaginal discharge. Pelvic exam shows white discharge as well as possible yellowish discharge as well. No friability of the cervix is noted. Cervix is not significantly tender with motion. Wet prep was obtained and sent to the lab. MUSCULOSKELETAL: Extremities without clubbing, cyanosis, or edema. No obvious deformities. NEUROLOGICAL: Awake and alert. No obvious cranial nerve deficits. Motor grossly within normal limits. Five out of 5 muscle strength in the arms and legs. Normal speech. PSYCHIATRIC: Appropriate mood and affect; insight and judgment normal. Data Data Last Documented VS Vital Signs Date Time Temp Pulse Resp B/P (MAP) Pulse Ox O2 Delivery O2 Flow Rate FiO2 12/30/17 14:28 81 15 112/63 (79) 100 Room Air 12/30/17 12:41 98.1 Orders Orders Gc And Chlamydia Pcr (12/30/17 14:30) Wet Prep Profile (12/30/17 14:30) Ed Urine Pregnancytest Poc (12/30/17 14:30) Urinalysis - C+S If Indicated (12/30/17 14:30) Urine Culture (12/30/17 14:45) Labs Laboratory Tests Test 12/30/17 14:45 Urine Color YELLOW Urine Turbidity CLOUDY Urine pH 5.5 Urine Specific [place] 1.027 Urine Protein 30 mg/dL Urine Glucose (UA) NEG mg/dL Urine Ketones NEG mg/dL Urine Occult Blood TRACE Urine Nitrite NEG Urine Bilirubin NEG Urine Urobilinogen LESS THAN 2.0 MG/DL Urine Leukocyte Esterase LARGE Urine RBC 6 /hpf Urine WBC 19 /hpf Urine Squamous Epithelial Cells 38 /hpf Urine Bacteria OCC /hpf Urine Mucus MANY /lpf Microscopic Urinalysis Comment CULTURE INDICATED Clue Cells (Wet Prep) NONE SEEN Vaginal Trichomonas (Wet Prep) NONE SEEN Vaginal Yeast (Wet Prep) NONE SEEN MDM Medical Decision Making Medical Screen Exam Complete: Yes Emergency Medical Condition: Yes Differential Diagnosis Bacterial vaginosis. Yeast infection. STD. Constipation. UTI. Narrative Course Patient is medically stable time exam Urine is negative Urinalysis is sent as well as urine GC chlamydia. Wet prep was sent to the lab. Urinalysis strongly suggest urinary tract infection. Urine culture is placed. Wet prep shows no clue cells, no Trichomonas, or yeast, however my exam showed obvious yeast infection. Urine GC chlamydia still pending. I am going to treat the patient empirically with 1 g Rocephin IM, 2000 mg metronidazole p.o. now. And 1200 mg azithromycin p.o. now. Patient will be sent home on Keflex 3 times daily for 7 days. Patient also given Diflucan 150 mg 1 weekly for 2 weeks. #2 Patient also given MiraLAX as directed. For her constipation. Patient should take [id number] stool softeners daily and push fluids. Patient is to follow-up with local ODD JOBS DAY WORKER if symptoms continue. Patient should refrain from sexual contact for 2 weeks. Patient can return if symptoms worsen as needed. Diagnosis Primary Impression: UTI (lower urinary tract infection) Additional Impressions: Yeast infection Screen for STD (sexually transmitted disease) Constipation Qualified Codes: K59.00 - Constipation, unspecified Referrals: [facility] Patient Instructions: Chlamydia (ED), Constipation (ED), General Instructions, Gonorrhea (ED), Vulvovaginal Candidiasis (ED) Additional Instructions: Urinalysis strongly suggest urinary tract infection. Urine culture is placed. Wet prep shows no clue cells, no Trichomonas, or yeast, however my exam showed obvious yeast infection. Urine GC chlamydia still pending. I am going to treat the patient empirically with 1 g Rocephin IM, 2000 mg metronidazole p.o. now. And 1200 mg azithromycin p.o. now. Patient will be sent home on Keflex 3 times daily for 7 days. Patient also given Diflucan 150 mg 1 weekly for 2 weeks. #2 Patient also given MiraLAX as directed. For her constipation. Patient should take [id number] stool softeners daily and push fluids. Patient is to follow-up with local ODD JOBS DAY WORKER if symptoms continue. Patient should refrain from sexual contact for 2 weeks. Patient can return if symptoms worsen as needed. Med/Other Pt SpecificInfo: Prescription(s) given Scripts No Active Prescriptions or Reported Meds Disposition: 01 DISCHARGE HOME Condition: Stable Saran Lowe Dec 30, 2017 14:36
[2017-12-30 15:35] LABS: BACTERIA, URINE OCC /hpf; BILIRUBIN, URINE NEG (NEG); BLOOD, URINE TRACE (NEG); GLUCOSE,URINE NEG (NEG); KETONE, URINE NEG (NEG); MUCUS URINE MANY /lpf (OCC); NITRITE,URINE NEG (NEG); PH, URINE 5.5 (5.0-8.5); SQUAMOUS EPITHELIAL CELL URINE 38 /hpf (0-5); URINE COLOR YELLOW (YELLW/STRAW); URINE LEUKOCYTE ESTERASE LARGE (NEG)
[2017-12-30] MEDS ORDERED: DIFL150T PO (15:56)
[2017-12-30] MEDS ORDERED: MIRA3350 PO (15:56)
[2017-12-30] MEDS ORDERED: CEPH-460 PO (15:56)
[2017-12-30] MEDS ORDERED: metroNIDAZOLE 500 MG TAB PO ONE (16:00)
[2017-12-30] MEDS ORDERED: AZITHROMYCIN 600 MG TAB PO ONE (16:00)
[2017-12-30] MEDS ORDERED: LIDOCAINE HCL 1% 50 ML VIAL IM ONE (16:00)
[2017-12-30] MEDS ORDERED: LIDOCAINE HCL 1% PF 2 ML VIAL OTHER ONE (16:15)
== END 2017-12-30 16:44 | disposition home or self-care (01) ==
LOC: NEPD 12:32
DX: N39.0 Urinary tract infection, site not specified (principal); K59.00 Constipation, unspecified; B37.3 Candidiasis of vulva and vagina; F90.9 Attention-deficit hyperactivity disorder, unspecified type
CPT/HCPCS: 81001; 84703; 87086; 87210; 87491; 87591; 96372; 99284; J0696

== ENCOUNTER 2018-02-04 14:17 | Emergency (ER) | payer SELFPAY ==
[~2018-02-04] VITALS: Ht 167.6 cm; Wt 55.3 kg
[~2018-02-04 14:17] MED LIST changes: +CEPH-460 PO; +DIFL150T PO; -METR-1 PO; +MIRA3350 PO
[2018-02-04 14:47] VITALS: BP 103/56; PULSE 82; RESP 16; TEMP 98.7; O2SAT 99
[2018-02-04 15:15] LABS: BILIRUBIN, URINE NEG (NEG); BLOOD, URINE NEG (NEG); GLUCOSE,URINE NEG (NEG); KETONE, URINE NEG (NEG); NITRITE,URINE NEG (NEG); URINE COLOR YELLOW (YELLW/STRAW); URINE LEUKOCYTE ESTERASE NEG (NEG)
[2018-02-04 15:19] LABS: WBC, URINE 0-2 /hpf (0-5)
--- NOTE | 2018-02-04 15:46 | PD ---
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 She states that the last menses was in October. She has taken test on her own and they have been negative. She states that she was seen at [facility] 3 weeks ago and had a positive test, but has not yet followed up with an LIDAR SCIENTIST. She denies any fevers, or other issues. Modifying Factors: None Associated Signs & Symptoms: Constipation, nausea, vaginal spotting Risk Factors: Total she had a positive test 3 weeks ago PFSH Past Medical History ADHD: Yes Blood Disorders: No Diabetes: No Diminished Hearing: No Immunizations Current: Yes Tetanus Vaccination: < 5 Years Influenza Vaccination: No ?: Unknown LMP: 11/16/17 : 0 Para: 0 Miscarriage: 0 : 0 Past Surgical History Surgical History: No Previous Surgery Social History Alcohol Use: No Tobacco Use: No Substance Use: No Allergies-Medications (Allergen,Severity, Reaction): Coded Allergies: mushroom (Unverified Allergy, Severe, fingers and face swelled up. Had some wheezing., 02/04/18) Took allergy medicine and used ice bags on face. latex (Verified Allergy, Intermediate, Hives, 02/04/18) Smoke (Verified Allergy, Unknown, can't breath, eyes get watery and has a cough, 02/04/18) Reported Meds & Prescriptions Reported Meds & Active Scripts Active Review of Systems Except as stated in HPI: all other systems reviewed are Neg Physical Exam Narrative GENERAL: Well-developed young -[place] female patient currently not in acute distress. Awake and oriented 3. SKIN: Focused skin assessment warm/dry. HEAD: Atraumatic. Normocephalic. EYES: Pupils equal and round. No scleral icterus. No injection or drainage. ENT: No nasal bleeding or discharge. Mucous membranes pink and moist. NECK: Trachea midline. No JVD. CARDIOVASCULAR: Regular rate and rhythm. No murmur appreciated. RESPIRATORY: No accessory muscle use. Clear to auscultation. Breath sounds equal bilaterally. GASTROINTESTINAL: Abdomen soft, non-tender, nondistended. Hepatic and splenic margins not palpable. GENITOURINARY: Normal external genitalia without lesions or erythema. Vaginal vault without blood or drainage. Cervical os was closed without drainage. No cervical motion tenderness. Uterus nontender and nonenlarged. Bilateral adnexa nontender without masses. MUSCULOSKELETAL: No obvious deformities. No clubbing. No cyanosis. No edema. NEUROLOGICAL: Awake and alert. No obvious cranial nerve deficits. Motor grossly within normal limits. Normal speech. PSYCHIATRIC: Appropriate mood and affect; insight and judgment normal. Data Data Last Documented VS Vital Signs Date Time Temp Pulse Resp B/P (MAP) Pulse Ox O2 Delivery O2 Flow Rate FiO2 02/04/18 14:47 98.7 82 16 103/56 (72) 99 Orders Orders Urinalysis - C+S If Indicated (02/04/18 14:30) Ed Urine Pregnancytest Poc (02/04/18 14:30) Beta Hcg (Quant/Titer) (02/04/18 15:43) Complete Blood Count With Diff (02/04/18 15:43) Basic Metabolic Panel (Bmp) (02/04/18 15:43) Gc And Chlamydia Pcr (02/04/18 15:43) Wet Prep Profile (02/04/18 15:43) Labs Laboratory Tests Test 02/04/18 15:00 02/04/18 16:00 Urine Collection Type CLEAN CATCH Urine Color YELLOW Urine Turbidity CLEAR Urine pH 6.0 Urine Specific [place] 1.020 Urine Protein NEG mg/dL Urine Glucose (UA) NEG mg/dL Urine Ketones NEG mg/dL Urine Occult Blood NEG Urine Nitrite NEG Urine Bilirubin NEG Urine Urobilinogen 0.2 MG/DL Urine Leukocyte Esterase NEG Urine WBC 0-2 /hpf Urine Squamous Epithelial Cells 6-8 /hpf Microscopic Urinalysis Comment CULT NOT INDICATED Urine Collection Time 1500 White Blood Count 4.4 TH/MM3 Red Blood Count 4.48 MIL/MM3 Hemoglobin 12.5 GM/DL Hematocrit 38.8 % Mean Corpuscular Volume 86.7 FL Mean Corpuscular Hemoglobin 27.8 PG Mean Corpuscular Hemoglobin Concent 32.1 % Red Cell Distribution Width 12.7 % Platelet Count 177 TH/MM3 Mean Platelet Volume 10.1 FL Neutrophils (%) (Auto) 57.2 % Lymphocytes (%) (Auto) 33.7 % Monocytes (%) (Auto) 8.1 % Eosinophils (%) (Auto) 0.6 % Basophils (%) (Auto) 0.4 % Neutrophils # (Auto) 2.5 TH/MM3 Lymphocytes # (Auto) 1.5 TH/MM3 Monocytes # (Auto) 0.4 TH/MM3 Eosinophils # (Auto) 0.0 TH/MM3 Basophils # (Auto) 0.0 TH/MM3 CBC Comment DIFF FINAL Differential Comment Clue Cells (Wet Prep) NONE SEEN Vaginal Trichomonas (Wet Prep) NONE SEEN Vaginal Yeast (Wet Prep) NONE SEEN Blood Urea Nitrogen 9 MG/DL Creatinine 0.73 MG/DL Random Glucose 80 MG/DL Calcium Level 9.0 MG/DL Sodium Level 140 MEQ/L Potassium Level 3.7 MEQ/L Chloride Level 108 MEQ/L Carbon Dioxide Level 26.3 MEQ/L Anion Gap 6 MEQ/L Estimat Glomerular Filtration Rate 120 ML/MIN Human Chorionic Gonadotropin, Quant LESS THAN 1 MIU/ML MDM Medical Decision Making Medical Screen Exam Complete: Yes Emergency Medical Condition: Yes Medical Record Reviewed: Yes Interpretation(s) Laboratory Tests Test 02/04/18 15:00 02/04/18 16:00 Urine Squamous Epithelial Cells 6-8 /hpf (0-5) Monocytes (%) (Auto) 8.1 % (0.0-8.0) Chloride Level 108 MEQ/L (98-107) Differential Diagnosis Dysmenorrhea versus threatened AB versus UTI versus ectopic Narrative Course Abdomen is fairly benign and I do not suspect an acute intra-abdominal process. I do not suspect an obstruction in this case, patient is not vomiting, and had a bowel movement yesterday. Her abdomen is fairly benign. Vital signs are stable. Lab work shows that she is not . No significant UTI was identified. Pelvic exam was fairly unremarkable. At this point, my plan would be to release her with follow-up to primary care doctor. Return for any worsening in symptoms as necessary. The plan has been discussed with her and she states understanding. Diagnosis Primary Impression: Dysmenorrhea Disposition: DISCHARGE HOME Condition: Stable Salina Pinzon MD February 04, 2018 15:46
[2018-02-04 16:10] LABS: AUTOMATED NEUTROPHIL # 2.5 TH/MM3 (1.8-7.7); BASOPHIL % 0.4 % (0.0-2.0); EOSINOPHIL % 0.6 % (0.0-4.0); HEMATOCRIT 38.8 % (35.0-46.0); HEMOGLOBIN 12.5 GM/DL (11.6-15.3); LYMPH % 33.7 % (9.0-44.0); LYMPHOCYTE # 1.5 TH/MM3 (1.0-4.8); MEAN CELL VOLUME 86.7 FL (80.0-100.0); MEAN CORPUSCULAR HEMOGLOBIN 27.8 PG (27.0-34.0); MEAN CORPUSCULAR HGB CONC 32.1 % (32.0-36.0); MEAN PLATELET VOLUME 10.1 FL (7.0-11.0); MONO % 8.1 % (0.0-8.0); MONOCYTE # 0.4 TH/MM3 (0-0.9); NEUT % 57.2 % (16.0-70.0); PLATELET COUNT 177 TH/MM3 (150-450); RED BLOOD COUNT 4.48 MIL/MM3 (4.00-5.30); RED CELL DISTRIBUTION WIDTH 12.7 % (11.6-17.2); WHITE BLOOD COUNT 4.4 TH/MM3 (4.0-11.0)
[2018-02-04 16:22] LABS: CHLORIDE 108 MEQ/L (98-107); SODIUM (NA) 140 MEQ/L (136-145)
[2018-02-04 16:25] LABS: BICARBONATE 26.3 MEQ/L (21.0-32.0); BLOOD UREA NITROGEN 9 MG/DL (7-18); GLUCOSE,RANDOM 80 MG/DL (74-106)
[2018-02-04 16:29] LABS: CREATININE 0.73 MG/DL (0.50-1.00); GLOMERULAR FILTRATION RATE 120 ML/MIN (>89)
[2018-02-04 17:22] VITALS: BP 124/63
== END 2018-02-04 17:15 | disposition home or self-care (01) ==
LOC: PHED 14:17
DX: N94.6 Dysmenorrhea, unspecified (principal); F90.9 Attention-deficit hyperactivity disorder, unspecified type
CPT/HCPCS: 80048; 81001; 84702; 84703; 85025; 87210; 87491; 87591; 99284